=== PATIENT | male | born 1960 | race Caucasian/White ===

== ENCOUNTER 2018-09-19 07:13 | Inpatient (IN) | payer MEDICAID ==
[~2018-09-19] VITALS: Ht 170.2 cm; Wt 77.1 kg
[2018-09-19] MEDS ORDERED: NORCO 7.5/325 T1 TA1 PO (08:13)
[2018-09-19] MEDS ORDERED: IBUPROFEN800 MG PO (08:13)
[2018-09-19 10:17] VITALS: BP 108/88; BMI 26.7
[2018-09-19 11:33] LABS: BASOPHILS 0.9 % (0-2); EOSINOPHILS 1.7 % (0-7); HEMOGLOBIN 13.3 g/dL (13.5-17.5); LYMPHOCYTES 21.4 % (15-50); MCH 31.7 pg (26.0-34.0); MCHC 34.1 g/dL (31.0-37.0); MCV 93.1 fL (80.0-100.0); MEAN PLATELET VOLUME 9.4 fL (7.4-10.4); MONOCYTES 11.6 % (2-11); NEUTROPHILS 64.4 % (40-80); PLATELET COUNT 154 10x3/uL (130-400); RBC 4.19 10x6/uL (4.20-6.10); RDW 13.4 % (11.5-14.5); WBC 5.3 10x3/uL (4.8-10.8)
[2018-09-19 12:09] LABS: ALBUMIN 3.9 g/dL (3.4-5.0); ANION GAP 13.2 mmol/L (8-16); BILIRUBIN - TOTAL 0.71 mg/dL (0.2-1.3); CALCIUM 8.9 mg/dL (8.5-10.1); CARBON DIOXIDE 28.7 mmol/L (21.0-32.0); CREATININE - SERUM 1.3 mg/dL (0.6-1.3); POTASSIUM - SERUM 3.9 mmol/L (3.5-5.1); PROTEIN - SERUM 7.8 g/dL (6.4-8.2)
[2018-09-19 14:46] VITALS: Ht 170.2 cm; Wt 77.1 kg
[2018-09-19 15:23] VITALS: BP 102/60
[2018-09-19 18:00] VITALS: BP 103/66
[2018-09-20 00:30] VITALS: BP 103/65
[2018-09-20 04:00] VITALS: BP 106/72
[2018-09-20 06:49] LABS: BASOPHILS 0.9 % (0-2); EOSINOPHILS 3.1 % (0-7); HEMOGLOBIN 14.3 g/dL (13.5-17.5); IMMATURE GRANULOCYTES 0.4 % (0-5); MCH 31.9 pg (26.0-34.0); MCV 93.8 fL (80.0-100.0); MEAN PLATELET VOLUME 10.3 fL (7.4-10.4); MONOCYTES 11.7 % (2-11); NEUTROPHILS 61.9 % (40-80); PLATELET COUNT 152 10x3/uL (130-400); RBC 4.48 10x6/uL (4.20-6.10); RDW 13.5 % (11.5-14.5); WBC 4.5 10x3/uL (4.8-10.8)
[2018-09-20 07:13] LABS: ALBUMIN 3.5 g/dL (3.4-5.0); ALKALINE PHOSPHATASE 70 U/L (46-116); ALT (SGPT) 428 U/L (10-68); BILIRUBIN - TOTAL 0.69 mg/dL (0.2-1.3); CALCIUM 8.5 mg/dL (8.5-10.1); CARBON DIOXIDE 25.3 mmol/L (21.0-32.0); CHLORIDE - SERUM 103 mmol/L (98-107); GLUCOSE 101 mg/dL (74-106); MAGNESIUM - SERUM 1.9 mg/dL (1.8-2.4); POTASSIUM - SERUM 3.7 mmol/L (3.5-5.1); PROTEIN - SERUM 7.6 g/dL (6.4-8.2); SODIUM 139 mmol/L (136-145)
[2018-09-20 07:16] LABS: CALC OSMOLALITY 281 mosm/kg (275-300); CREATININE - SERUM 0.9 mg/dL (0.6-1.3); UREA NITROGEN 23 mg/dL (7-18); eGFR NON AFRICAN AMERICAN > 90 mL/min (90-120)
[2018-09-20 08:47] VITALS: BP 107/67
[2018-09-20 12:07] VITALS: BP 98/61
[2018-09-20 15:14] VITALS: BP 109/72
[2018-09-20 20:23] VITALS: BP 103/62
[2018-09-21 00:33] VITALS: BP 101/64
[2018-09-21 04:45] VITALS: BP 106/74
[2018-09-21 07:01] LABS: ALKALINE PHOSPHATASE 62 U/L (46-116); ALT (SGPT) 375 U/L (10-68); BILIRUBIN - TOTAL 0.57 mg/dL (0.2-1.3); CALC OSMOLALITY 279 mosm/kg (275-300); CALCIUM 8.2 mg/dL (8.5-10.1); CARBON DIOXIDE 26.7 mmol/L (21.0-32.0); CHLORIDE - SERUM 105 mmol/L (98-107); GLUCOSE 105 mg/dL (74-106); MAGNESIUM - SERUM 2.1 mg/dL (1.8-2.4); POTASSIUM - SERUM 4.2 mmol/L (3.5-5.1); PROTEIN - SERUM 6.9 g/dL (6.4-8.2); SODIUM 140 mmol/L (136-145); UREA NITROGEN 15 mg/dL (7-18); eGFR NON AFRICAN AMERICAN 81 mL/min (90-120)
[2018-09-21 07:02] LABS: BASOPHILS 0.4 % (0-2); HEMATOCRIT 39.4 % (42.0-54.0); HEMOGLOBIN 13.2 g/dL (13.5-17.5); IMMATURE GRANULOCYTES 0.2 % (0-5); LYMPHOCYTES 21.6 % (15-50); MCH 31.7 pg (26.0-34.0); MCHC 33.5 g/dL (31.0-37.0); MCV 94.5 fL (80.0-100.0); MEAN PLATELET VOLUME 9.9 fL (7.4-10.4); MONOCYTES 12.3 % (2-11); NEUTROPHILS 63.5 % (40-80); PLATELET COUNT 158 10x3/uL (130-400); RBC 4.17 10x6/uL (4.20-6.10); RDW 13.7 % (11.5-14.5); WBC 5.5 10x3/uL (4.8-10.8)
[2018-09-21 08:35] VITALS: BP 110/73
[2018-09-21 20:00] VITALS: BP 104/64
[2018-09-22 00:02] VITALS: BP 106/71
[2018-09-22 04:00] VITALS: BP 108/67
[2018-09-22 07:03] LABS: BASOPHILS 0.7 % (0-2); EOSINOPHILS 2.9 % (0-7); HEMOGLOBIN 13.3 g/dL (13.5-17.5); IMMATURE GRANULOCYTES 0.4 % (0-5); LYMPHOCYTES 26.5 % (15-50); MCH 31.7 pg (26.0-34.0); MCHC 33.3 g/dL (31.0-37.0); MCV 95.5 fL (80.0-100.0); MEAN PLATELET VOLUME 9.9 fL (7.4-10.4); MONOCYTES 13.2 % (2-11); NEUTROPHILS 56.3 % (40-80); PLATELET COUNT 155 10x3/uL (130-400); RBC 4.19 10x6/uL (4.20-6.10); RDW 13.5 % (11.5-14.5); WBC 5.5 10x3/uL (4.8-10.8)
[2018-09-22 07:25] LABS: CALC OSMOLALITY 279 mosm/kg (275-300); CALCIUM 8.3 mg/dL (8.5-10.1); CHLORIDE - SERUM 105 mmol/L (98-107); GLUCOSE 92 mg/dL (74-106); MAGNESIUM - SERUM 2.1 mg/dL (1.8-2.4); POTASSIUM - SERUM 4.6 mmol/L (3.5-5.1); SODIUM 141 mmol/L (136-145); UREA NITROGEN 11 mg/dL (7-18); eGFR NON AFRICAN AMERICAN 81 mL/min (90-120)
--- NOTE | 2018-09-22 17:19 | MORECARE ---
CASE MANAGEMENT DISCHARGE SUMMARY PATIENT: AMERICO SNIDER UNIT: [id number] ADM DATE: 09/22/18 AGE: 58 : 60 SEX: M ROOM/BED: D.1206 AUTHOR: XIN ALEXIS PHYSICIAN: REFERRING PHYSICIAN: CANDE MORROW MD DATE OF SERVICE: 09/22/18 Discharge Plan Patient Name: AMERICO SNIDER [facility] [facility] 1960 Planned Disposition: Nursing Facility [facility] [place] Anticipated Discharge Date: Discharge Date: Expected LOS: Initial Reviewer: [id number] Initial Review Date: 09/22/2018 Generated: 09/22/18 6:19 pm DCP- Discharge Planning Updated by [email or web address]: Katie Castillo on 09/20/18 10:[address] NO PLASTIC SURGEON AVAILABLE ON STAFF. WOUND CARE CONSULT HAS BEEN ORDERED. NURSE ON UNIT AT THIS TIME TO EVAL KAY AND COMPLETE CONSULT. External Providers External Provider: [facility] Next Contact Date: 09/23/2018 Service Request Date: Service Type: Resolution: Reviewer: Comments: External Provider: [facility] Next Contact Date: 09/23/2018 Service Request Date: Service Type: Resolution: Reviewer: Comments: External Provider: [facility] Next Contact Date: 09/23/2018 Service Request Date: Service Type: Resolution: Reviewer: Comments: External Provider: [facility] Next Contact Date: 09/23/2018 Service Request Date: Service Type: Resolution: Reviewer: Comments: External Provider[facility] [place] Next Contact Date: 09/23/2018 Service Request Date: Service Type: Resolution: Reviewer: Comments: Patient Name: AMERICO SNIDER Page 01551 at 8460 All edits/amendments must be made on the electronic document DICTATION DATE: 09/22/181717 DATA TECHNICAL LEAD: IRA 09/22/181717 RPT#: [id number] DC DATE: STATUS: ADM IN [facility] [address] [place] [address] END OF REPORT
--- NOTE | 2018-09-22 17:27 | MORECARE ---
CASE MANAGEMENT DISCHARGE SUMMARY PATIENT: AMERICO SNIDER UNIT: [id number] ADM DATE: 09/22/18 AGE: 58 : 60 SEX: M ROOM/BED: D.1206 AUTHOR: XIN ALEXIS PHYSICIAN: REFERRING PHYSICIAN: CANDE MORROW MD DATE OF SERVICE: 09/22/18 Discharge Plan Patient Name: AMERICO SNIDER [facility] [facility] 1960 Planned Disposition: Nursing Facility [facility] Anticipated Discharge Date: Discharge Date: Expected LOS: Initial Reviewer: [id number] Initial Review Date: 09/22/2018 Generated: 09/22/18 6:27 pm DCP- Discharge Planning Updated by [email or web address]: Katie Castillo on 09/20/18 10:[address] NO PLASTIC SURGEON AVAILABLE ON STAFF. WOUND CARE CONSULT HAS BEEN ORDERED. NURSE ON UNIT AT THIS TIME TO EVAL KAY AND COMPLETE CONSULT. External Providers [facility] Next Contact Date: 09/23/2018 Service Request Date: Service Type: Resolution: Reviewer: Comments: External Provider: [facility] Next Contact Date: 09/23/2018 Service Request Date: Service Type: Resolution: Reviewer: Comments: [facility] Next Contact Date: 09/23/2018 Service Request Date: Service Type: Resolution: Reviewer: Comments: Last DP export: 09/22/18 4:19 Patient Name: AMERICO SNIDER Page 82103 at 1727 All edits/amendments must be made on the electronic document DICTATION DATE: 09/22/181725 PHARMACY TECH: IRA 09/22/181725 RPT#: [id number] DC DATE: STATUS: ADM IN [facility] [address] [place] [address] END OF REPORT
--- NOTE | 2018-09-22 17:51 | MORECARE ---
CASE MANAGEMENT DISCHARGE SUMMARY PATIENT: AMERICO SNIDER UNIT: [id number] ADM DATE: 09/22/18 AGE: 58 : 60 SEX: M ROOM/BED: D.1206 AUTHOR: REUBEN,DOC PHYSICIAN: REFERRING PHYSICIAN: CANDE MORROW MD DATE OF SERVICE: 09/22/18 Discharge Plan Patient Name: AMERICO SNIDER Facility: [facility]:[place] : 1960 Planned Disposition: Nursing Facility [facility] Cert Anticipated Discharge Date: Discharge Date: Expected LOS: Initial Reviewer: [email or web address] Initial Review Date: 09/22/2018 Generated: 09/22/18 6:51 pm Comments DCP- Discharge Planning Updated by [id number]: Dandy Hancock on 09/22/18 4:[address] Patient Name: AMERICO SNIDER Admission Status: ER Accout number: [id number] Admission Date: 09-22-2018 : 1960 Admission Diagnosis: Attending: CANDE MORROW Current LOS: 1 Anticipated DC Date: Planned Disposition: Nursing Facility [facility] Cert Primary Insurance: MEDICAID [place] PLANNED EXTERNAL PROVIDER: ANY ACCEPTING FACILITY, SHELTER CARE MEDICAID BED Discharge Planning Comments: CM RECEIVED ORDER FOR PLACEMENT. CM MET WITH PT IN ROOM TO DISCUSS DISCHARGE PLANNING AND NEEDS. PT REPORTS HE IS HOMELESS AND HAS BEEN FOR "YEARS". PT HAS BEEN LIVING IN [place] [facility] AND [facility] ON [facility]. THE HOME HAS NO UTILITIES. PT REPORTS HE HAD A BUCKET WITH BURNING WOOD FOR HEAT AND HAD PUT CHARCOAL FLUID ON IT AND PICKED THE BUCKET UP THAT HAD A HOLE IN IT AND THE FLUID LEAKED ONTO HIS PANT LEG AND BURNED PT'S LEG. PT REPORTS HAVING NO FAMILY OR FRIENDS TO ASSIST AND HAS NO EMERGENCY CONTACT PERSONS. PT REPORTS HE HAS NO INCOME AT ALL AND HAS BEEN DENIED DISABILITY ONCE. 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 PT REPORTS HE NEEDS TO GO TO THE [place] TO LIVE. PT HAS NO MONEY TO PAY FOR ASSISTED LIVING. PT HAS NEVER APPLIED FOR GOVERNMENT HOUSING. CM EXPLAINED TO PT THAT HE WOULD HAVE TO HAVE DEMONSTRATED SKILLED NEEDS THAT OTHERS WOULD HAVE TO PROVIDE CARE FOR MEDICAID TO AUTHORIZE TRUCK DRIVER INSTRUCTOR CARE. PT INITIALLY REPORTED BEING UNABLE TO WALK DUE TO BURN ON THE LEG. WHILE CM WAS EXPLAINING [place] OPTIONS AND LOCATIONS, PT EXCUSED HIMSELF, GOT OUT OF BED, URINATED IN TOILET AND AFTER FLUSHING TOILET, RETURNED TO HIS BED WITHOUT WASHING HIS HANDS. CM POINTED OUT THAT PT IS ABLE TO WALK AND APPEARS TO BE ABLE TO TAKE CARE OF HIMSELF. PT INFORMED CM THAT HE WAS NOT ABLE TO WALK "VERY GOOD NOW." PT HAS NO CHOICE IN COR[place], CHOICE COMPLETED. CM EXPLAINED TO PT THAT CM IS NOT HOPEFUL THAT A [place]RE[place] WILL ACCEPT PT AND THAT MEDICAID WILL PAY FOR PT'S SHELTER CARE, BUT CM WILL TRY. CM DISCUSSED THAT PT MAY HAVE TO RETURN HOME TO HIS ABANDONED HOME AND HAVE OUTPATIENT WOUND CARE; PT REPORTS NOT HAVING TRANSPORTATION. CM PROVIDED PT WITH MEDICAID TRANSPORTATION NUMBER, DISCUSSED CALLING TO CERTIFY HIMSELF AND NEED FOR 24 HOURS NOTICE OF APPOINTMENTS FOR TRANSPORTATION. CM DISCUSSED ASSISTANCE AVAILABLE AT [employer], PT REPORTS USING [employer] AND MOST RECENTLY GETTING FOOD FROM THEM. PT REPORTS HE MAY HAVE A LADY HE HAS DONE WORK FOR THAT MAY ALLOW HIM TO STAY A SHORT TIME IN HER HOME TO ALLOW HIM TIME TO RECUPERATE AND RECEIVE HOME HEALTH. PT HAS NOT PRIMARY CARE DOCTOR AND IF HOME HEALTH IS NEEDED, A DOCTOR WOULD HAVE TO BE WILLING TO FOLLOW FOR HOME HEALTH ORDERS. CM PROVIDED PT WITH APPLICATION FOR [employer] [facility] WITH INK PEN. DR. NASH UPDATED. CM FAXED REFERRALS FOR TRUCK DRIVER INSTRUCTOR CARE TO [facility], [facility], [facility], [place], [facility], [facility], [facility] AND [facility]. CM WAITING ADMISSION DETERMINATION FROM ALL LISTED NURSING HOMES. Tar Heater: Dandy Hancock DCP- Discharge Planning Updated by [id number]: Katie Castillo on 09/20/18 10:[address] NO PLASTIC SURGEON AVAILABLE ON STAFF. WOUND CARE CONSULT HAS BEEN ORDERED. NURSE ON UNIT AT THIS TIME TO EVAL KAY AND COMPLETE CONSULT. Last DP export: 09/22/18 4:27 Patient Name: AMERICO SNIDER Page 60784 at 175 All edits/amendments must be made on the electronic document DICTATION DATE: 09/22/181750 GLAZE MAKER: IRA 09/22/181750 RPT#: [id number] DC DATE: STATUS: ADM IN [facility] [address] [place] [address] END OF REPORT
--- NOTE | 2018-09-22 17:59 | MORECARE ---
CASE MANAGEMENT DISCHARGE SUMMARY PATIENT: AMERICO SNIDER UNIT: [id number] ADM DATE: 09/22/18 AGE: 58 : 60 SEX: M ROOM/BED: D.1206 AUTHOR: REUBEN,DOC PHYSICIAN: REFERRING PHYSICIAN: CANDE MORROW MD DATE OF SERVICE: 09/22/18 Discharge Plan Patient Name: AMERICO SNIDER Facility: [facility]:[place] : 1960 Planned Disposition: Nursing Facility [facility] Cert Anticipated Discharge Date: Discharge Date: Expected LOS: Initial Reviewer: [id number] Initial Review Date: 09/22/2018 Generated: 09/22/18 6:58 pm Comments DCP- Discharge Planning Updated by [email or web address]: Dandy Hancock on 09/22/18 4:[address] Patient Name: AMERICO SNIDER Admission Status: ER Accout number: [id number] Admission Date: 09-22-2018 : 1960 Admission Diagnosis: Attending: CANDE MORROW Current LOS: 1 Anticipated DC Date: Planned Disposition: Nursing Facility [facility] Cert Primary Insurance: MEDICAID [place] PLANNED EXTERNAL PROVIDER: ANY ACCEPTING FACILITY, CARE HOME CARE MEDICAID BED Discharge Planning Comments: CM RECEIVED ORDER FOR PLACEMENT. CM MET WITH PT IN ROOM TO DISCUSS DISCHARGE PLANNING AND NEEDS. PT REPORTS HE IS HOMELESS AND HAS BEEN FOR "YEARS". PT HAS BEEN LIVING IN [place] [facility] AND MORE ON [facility]. THE HOME HAS NO UTILITIES. PT REPORTS HE HAD A BUCKET WITH BURNING WOOD FOR HEAT AND HAD PUT CHARCOAL FLUID ON IT AND PICKED THE BUCKET UP THAT HAD A HOLE IN IT AND THE FLUID LEAKED ONTO HIS PANT LEG AND BURNED PT'S LEG. PT REPORTS HAVING NO FAMILY OR FRIENDS TO ASSIST AND HAS NO EMERGENCY CONTACT PERSONS. PT REPORTS HE HAS NO INCOME AT ALL AND HAS BEEN DENIED DISABILITY ONCE. 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 PT REPORTS HE NEEDS TO GO TO THE LONGTER[place] TO LIVE. PT HAS NO MONEY TO PAY FOR ASSISTED LIVING. PT HAS NEVER APPLIED FOR GOVERNMENT HOUSING. CM EXPLAINED TO PT THAT HE WOULD HAVE TO HAVE DEMONSTRATED SKILLED NEEDS THAT OTHERS WOULD HAVE TO PROVIDE CARE FOR MEDICAID TO AUTHORIZE VETERANS EMPLOYMENT REPRESENTATIVE CARE. PT INITIALLY REPORTED BEING UNABLE TO WALK DUE TO BURN ON THE LEG. WHILE CM WAS EXPLAINING LONGTERM OPTIONS AND LOCATIONS, PT EXCUSED HIMSELF, GOT OUT OF BED, URINATED IN TOILET AND AFTER FLUSHING TOILET, RETURNED TO HIS BED WITHOUT WASHING HIS HANDS. CM POINTED OUT THAT PT IS ABLE TO WALK AND APPEARS TO BE ABLE TO TAKE CARE OF HIMSELF. PT INFORMED CM THAT HE WAS NOT ABLE TO WALK "VERY GOOD NOW." PT HAS NO CHOICE IN LONGTERM, CHOICE COMPLETED. CM EXPLAINED TO PT THAT CM IS NOT HOPEFUL THAT A LONGTERM WILL ACCEPT PT AND THAT MEDICAID WILL PAY FOR PT'S CARE HOME CARE, BUT CM WILL TRY. CM DISCUSSED THAT PT MAY HAVE TO RETURN HOME TO HIS ABANDONED HOME AND HAVE OUTPATIENT WOUND CARE; PT REPORTS NOT HAVING TRANSPORTATION. CM PROVIDED PT WITH MEDICAID TRANSPORTATION NUMBER, DISCUSSED CALLING TO CERTIFY HIMSELF AND NEED FOR 24 HOURS NOTICE OF APPOINTMENTS FOR TRANSPORTATION. CM DISCUSSED ASSISTANCE AVAILABLE AT [employer], PT REPORTS USING [employer] AND MOST RECENTLY GETTING FOOD FROM THEM. PT REPORTS HE MAY HAVE A LADY HE HAS DONE WORK FOR THAT MAY ALLOW HIM TO STAY A SHORT TIME IN HER HOME TO ALLOW HIM TIME TO RECUPERATE AND RECEIVE HOME HEALTH. PT HAS NOT PRIMARY CARE DOCTOR AND IF HOME HEALTH IS NEEDED, A DOCTOR WOULD HAVE TO BE WILLING TO FOLLOW FOR HOME HEALTH ORDERS. CM PROVIDED PT WITH APPLICATION FOR [employer] [facility]OUSING WITH INK PEN. DR. NASH UPDATED. CM FAXED REFERRALS FOR VETERANS EMPLOYMENT REPRESENTATIVE CARE TO [facility], [facility], [facility], [facility], [place], [facility], [facility] AND [facility]. CM WAITING ADMISSION DETERMINATION FROM ALL LISTED NURSING HOMES. Pecan Cleaner: Dandy Hancock DCP- Discharge Planning Updated by [id number]: Katie Castillo on 09/20/18 10:[address] NO PLASTIC SURGEON AVAILABLE ON STAFF. WOUND CARE CONSULT HAS BEEN ORDERED. NURSE ON UNIT AT THIS TIME TO EVAL KAY AND COMPLETE CONSULT. Coverage Notice Reviewer: [id number] - Dandy Hancock Notice Issued Date-Time: 09/22/2018 15:50 Notice Type: Patient Choice Letter Notice Delivered To: Patient Relationship to Patient: Aircraft Quality Control Inspector Name: Delivery Method: HAND - Hand Delivered Corrine Days: Prior Verbal Notification: Recipient Understood Notice: Yes Recipient Signature: Yes Med Rec Note Co-signed by Attending: Coverage Notice Comment: NO LONGTERM PREFERENCE IN THE STATE. Last DP export: 09/22/18 4:51 Patient Name: AMERICO SNIDER Page 61246 at 1759 All edits/amendments must be made on the electronic document DICTATION DATE: 09/22/181757 HOGSHEAD STRIPPER: IRA 09/22/181757 RPT#: [id number] DC DATE: STATUS: ADM IN [facility] [address] [place] [address] END OF REPORT
[2018-09-22 20:03] VITALS: BP 110/64
[2018-09-23 04:58] VITALS: BP 103/65
[2018-09-23 07:14] LABS: BASOPHILS 0.6 % (0-2); EOSINOPHILS 3.8 % (0-7); HEMATOCRIT 41.9 % (42.0-54.0); HEMOGLOBIN 14.2 g/dL (13.5-17.5); IMMATURE GRANULOCYTES 0.2 % (0-5); LYMPHOCYTES 25.4 % (15-50); MCHC 33.9 g/dL (31.0-37.0); MCV 94.4 fL (80.0-100.0); MEAN PLATELET VOLUME 10.6 fL (7.4-10.4); PLATELET COUNT 141 10x3/uL (130-400); RBC 4.44 10x6/uL (4.20-6.10); RDW 13.3 % (11.5-14.5); WBC 4.7 10x3/uL (4.8-10.8)
[2018-09-23 07:18] LABS: CALC OSMOLALITY 277 mosm/kg (275-300); CALCIUM 8.3 mg/dL (8.5-10.1); CARBON DIOXIDE 25.8 mmol/L (21.0-32.0); CHLORIDE - SERUM 104 mmol/L (98-107); CREATININE - SERUM 0.9 mg/dL (0.6-1.3); GLUCOSE 86 mg/dL (74-106); MAGNESIUM - SERUM 1.9 mg/dL (1.8-2.4); POTASSIUM - SERUM 4.1 mmol/L (3.5-5.1); SODIUM 139 mmol/L (136-145); UREA NITROGEN 14 mg/dL (7-18); eGFR NON AFRICAN AMERICAN > 90 mL/min (90-120)
[2018-09-23 08:11] LABS: HEPATITIS C ANTIBODY >11.0 S/CO RAT (0.0-0.9)
--- NOTE | 2018-09-23 16:57 | MORECARE ---
CASE MANAGEMENT DISCHARGE SUMMARY PATIENT: AMERICO SNIDER UNIT: [id number] ADM DATE: 09/22/18 AGE: 58 : 60 SEX: M ROOM/BED: D.1206 AUTHOR: REUBEN,DOC PHYSICIAN: REFERRING PHYSICIAN: CANDE MORROW MD DATE OF SERVICE: 09/23/18 Discharge Plan Patient Name: AMERICO SNIDER Facility[facility]:[place] : 1960 Planned Disposition: Nursing Facility [facility] Cert Anticipated Discharge Date: Discharge Date: Expected LOS: Initial Reviewer: [id number] Initial Review Date: 09/22/2018 Generated: 09/23/18 5:57 pm Comments DCP- Discharge Planning Updated by [id number]: Dandy Hancock on 09/23/18 3:[address] Patient Name: AMERICO SNIDER Encounter No: [id number] : 1960 Primary Insurance: MEDICAID [place] Anticipated DC Date: Planned Disposition: Nursing Facility [facility] Cert External Planned Provider: ANY ACCEPTING [facility] DCP follow-up note: CM RECEIVED CALLS FROM LUPILLO AT [facility] AND [facility], BOTH FACILITIES TURNED DOWN PT FOR PLACEMENT REPORTING PT IS TOO HIGH FUNCTIONING AND MEDICAID WILL NOT APPROVE [facility] PLACEMENT. CM SPOKE TO ROBIN OF [facility] WHO IS STILL LOOKING AT PT'S REFERRAL. DR. NASH UPDATED. CM LINE CONSTRUCTION ENGINEER AGATHA UPDATED. CM WAITING ADMISSION DETERMINATIONS FROM [facility], [place], [facility], [facility] AND [facility]. Telegraphic Typewriter Repairer: Dandy Hancock DCP- Discharge Planning Updated by [id number]: Dandy Hancock on 09/22/18 4:[address] Patient Name: AMERICO SNIDER Admission Status: ER Accout number: [id number] Admission Date: 09-22-2018 : 1960 Admission Diagnosis: Attending: CANDE MORROW Current LOS: 1 Anticipated DC Date: Planned Disposition: Nursing Facility [facility] Cert Primary Insurance: MEDICAID [place] PLANNED EXTERNAL PROVIDER: ANY ACCEPTING FACILITY, [facility] MEDICAID BED Discharge Planning Comments: CM RECEIVED ORDER FOR PLACEMENT. CM MET WITH PT IN ROOM TO DISCUSS DISCHARGE PLANNING AND NEEDS. PT REPORTS HE IS HOMELESS AND HAS BEEN FOR "YEARS". PT HAS BEEN LIVING IN [place] [employer] AND MORE ON [address]. THE HOME HAS NO UTILITIES. PT REPORTS HE HAD A BUCKET WITH BURNING WOOD FOR HEAT AND HAD PUT CHARCOAL FLUID ON IT AND PICKED THE BUCKET UP THAT HAD A HOLE IN IT AND THE FLUID LEAKED ONTO HIS PANT LEG AND BURNED PT'S LEG. PT REPORTS HAVING NO FAMILY OR FRIENDS TO ASSIST AND HAS NO EMERGENCY CONTACT PERSONS. PT REPORTS HE HAS NO INCOME AT ALL AND HAS BEEN DENIED DISABILITY ONCE. 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 PT REPORTS HE NEEDS TO GO TO THE SNF TO LIVE. PT HAS NO MONEY TO PAY FOR ASSISTED LIVING. PT HAS NEVER APPLIED FOR GOVERNMENT HOUSING. CM EXPLAINED TO PT THAT HE WOULD HAVE TO HAVE DEMONSTRATED SKILLED NEEDS THAT OTHERS WOULD HAVE TO PROVIDE CARE FOR MEDICAID TO AUTHORIZE LOCKSTITCH SLEEVE MAKER CARE. PT INITIALLY REPORTED BEING UNABLE TO WALK DUE TO BURN ON THE LEG. WHILE CM WAS EXPLAINING SNF OPTIONS AND LOCATIONS, PT EXCUSED HIMSELF, GOT OUT OF BED, URINATED IN TOILET AND AFTER FLUSHING TOILET, RETURNED TO HIS BED WITHOUT WASHING HIS HANDS. CM POINTED OUT THAT PT IS ABLE TO WALK AND APPEARS TO BE ABLE TO TAKE CARE OF HIMSELF. PT INFORMED CM THAT HE WAS NOT ABLE TO WALK "VERY GOOD NOW." PT HAS NO CHOICE IN SNF, CHOICE COMPLETED. CM EXPLAINED TO PT THAT CM IS NOT HOPEFUL THAT A SNF WILL ACCEPT PT AND THAT MEDICAID WILL PAY FOR PT'S LOCKSTITCH SLEEVE MAKER CARE, BUT CM WILL TRY. CM DISCUSSED THAT PT MAY HAVE TO RETURN HOME TO HIS ABANDONED HOME AND HAVE OUTPATIENT WOUND CARE; PT REPORTS NOT HAVING TRANSPORTATION. CM PROVIDED PT WITH MEDICAID TRANSPORTATION NUMBER, DISCUSSED CALLING TO CERTIFY HIMSELF AND NEED FOR 24 HOURS NOTICE OF APPOINTMENTS FOR TRANSPORTATION. CM DISCUSSED ASSISTANCE AVAILABLE AT [employer], PT REPORTS USING [employer] AND MOST RECENTLY GETTING FOOD FROM THEM. PT REPORTS HE MAY HAVE A LADY HE HAS DONE WORK FOR THAT MAY ALLOW HIM TO STAY A SHORT TIME IN HER HOME TO ALLOW HIM TIME TO RECUPERATE AND RECEIVE HOME HEALTH. PT HAS NOT PRIMARY CARE DOCTOR AND IF HOME HEALTH IS NEEDED, A DOCTOR WOULD HAVE TO BE WILLING TO FOLLOW FOR HOME HEALTH ORDERS. CM PROVIDED PT WITH APPLICATION FOR GOVERNMENT HOUSING WITH INK PEN. DR. NASH UPDATED. CM FAXED REFERRALS FOR [facility] TO [facility], [facility], [facility], [place], [place], [facility], [facility] AND [facility]. CM WAITING ADMISSION DETERMINATION FROM ALL LISTED NURSING HOMES. Telegraphic Typewriter Repairer: Dandy Hancock DCP- Discharge Planning Updated by [id number]: Katiepito Castillo on 09/20/18 10:[address] NO PLASTIC SURGEON AVAILABLE ON STAFF. WOUND CARE CONSULT HAS BEEN ORDERED. NURSE ON UNIT AT THIS TIME TO EVAL KAY AND COMPLETE CONSULT. Coverage Notice Reviewer: [id number] - Dandy Hancock Notice Issued Date-Time: 09/22/2018 15:50 Notice Type: Patient Choice Letter Notice Delivered To: Patient Relationship to Patient: Remediation Consultant Name: Delivery Method: HAND - Hand Delivered Corrine Days: Prior Verbal Notification: Recipient Understood Notice: Yes Recipient Signature: Yes Med Rec Note Co-signed by Attending: Coverage Notice Comment: NO SNF PREFERENCE IN THE STATE. Last DP export: 09/22/18 4:59 Patient Name: AMERICO SNIDER Page 31918 at 1657 All edits/amendments must be made on the electronic document DICTATION DATE: 09/23/181655 HUMAN RESOURCES ASSISTANT: IRA 09/23/181655 RPT#: [id number] [place] DATE: STATUS: ADM IN [facility] [address] [place] [address] END OF REPORT
[2018-09-23 20:00] VITALS: BP 107/65
[2018-09-24] VITALS: BP 103/65
[2018-09-24 04:00] VITALS: BP 104/66
[2018-09-24 09:20] VITALS: BP 96/55
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
[2018-09-24 12:45] LABS: BASOPHILS 0.7 % (0-2); EOSINOPHILS 3.6 % (0-7); HEMATOCRIT 43.5 % (42.0-54.0); HEMOGLOBIN 14.9 g/dL (13.5-17.5); IMMATURE GRANULOCYTES 0.3 % (0-5); LYMPHOCYTES 24.4 % (15-50); MCH 32.5 pg (26.0-34.0); MCHC 34.3 g/dL (31.0-37.0); MCV 94.8 fL (80.0-100.0); MEAN PLATELET VOLUME 9.7 fL (7.4-10.4); MONOCYTES 13.4 % (2-11); NEUTROPHILS 57.6 % (40-80); PLATELET COUNT 170 10x3/uL (130-400); RBC 4.59 10x6/uL (4.20-6.10); RDW 13.6 % (11.5-14.5)
[2018-09-24 13:03] LABS: ALBUMIN 3.3 g/dL (3.4-5.0); ALKALINE PHOSPHATASE 79 U/L (46-116); ALT (SGPT) 623 U/L (10-68); CALC OSMOLALITY 284 mosm/kg (275-300); CALCIUM 8.7 mg/dL (8.5-10.1); CARBON DIOXIDE 27.5 mmol/L (21.0-32.0); CHLORIDE - SERUM 105 mmol/L (98-107); CREATININE - SERUM 0.9 mg/dL (0.6-1.3); GLUCOSE 87 mg/dL (74-106); MAGNESIUM - SERUM 1.9 mg/dL (1.8-2.4); POTASSIUM - SERUM 4.4 mmol/L (3.5-5.1); PROTEIN - SERUM 7.5 g/dL (6.4-8.2); SODIUM 143 mmol/L (136-145); UREA NITROGEN 14 mg/dL (7-18); eGFR NON AFRICAN AMERICAN > 90 mL/min (90-120)
[2018-09-24 14:41] VITALS: BP 117/60
[2018-09-24 16:12] VITALS: BP 102/54
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
[2018-09-24 20:00] VITALS: BP 105/62
[2018-09-25] VITALS: BP 105/58
[2018-09-25 04:00] VITALS: BP 102/55
[2018-09-25 06:51] LABS: BASOPHILS 0.7 % (0-2); EOSINOPHILS 4.4 % (0-7); HEMATOCRIT 40.7 % (42.0-54.0); HEMOGLOBIN 13.6 g/dL (13.5-17.5); IMMATURE GRANULOCYTES 0.5 % (0-5); LYMPHOCYTES 22.9 % (15-50); MCH 31.9 pg (26.0-34.0); MCHC 33.4 g/dL (31.0-37.0); MCV 95.5 fL (80.0-100.0); MEAN PLATELET VOLUME 9.8 fL (7.4-10.4); NEUTROPHILS 57.5 % (40-80); PLATELET COUNT 165 10x3/uL (130-400); RBC 4.26 10x6/uL (4.20-6.10); RDW 13.7 % (11.5-14.5)
[2018-09-25 07:06] LABS: WBC 4.3 10x3/uL (4.8-10.8)
[2018-09-25 07:36] LABS: ALBUMIN 2.8 g/dL (3.4-5.0); ALKALINE PHOSPHATASE 73 U/L (46-116); ALT (SGPT) 584 U/L (10-68); BILIRUBIN - TOTAL 0.31 mg/dL (0.2-1.3); CALC OSMOLALITY 286 mosm/kg (275-300); CALCIUM 8.3 mg/dL (8.5-10.1); CARBON DIOXIDE 26.4 mmol/L (21.0-32.0); CHLORIDE - SERUM 106 mmol/L (98-107); CREATININE - SERUM 0.9 mg/dL (0.6-1.3); GLUCOSE 99 mg/dL (74-106); POTASSIUM - SERUM 3.9 mmol/L (3.5-5.1); PROTEIN - SERUM 6.9 g/dL (6.4-8.2); SODIUM 143 mmol/L (136-145); eGFR NON AFRICAN AMERICAN > 90 mL/min (90-120)
[2018-09-25 07:43] LABS: UREA NITROGEN 18 mg/dL (7-18)
[2018-09-25 11:33] VITALS: BP 96/66
[2018-09-25] MEDS ORDERED: KEFLEX500 MG PO (12:47)
[2018-09-25] MEDS ORDERED: NORCO-7.5 PO (12:48)
[2018-09-25] MEDS ORDERED: SILVADENE TOPICAL (12:49)
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
== END 2018-09-25 15:35 | disposition home or self-care (01) | DRG 935 ==
LOC: D.ER 07:13 → OBSVTIME 08:29 → D.M3 08:29
PROVIDERS: Family Medicine; ADMIT Internal Medicine Nephrology
DX: T24.202A Burn of second degree of unspecified site of left lower limb, except ankle and foot, initial encounter (principal); F17.213 Nicotine dependence, cigarettes, with withdrawal; T31.0 Burns involving less than 10% of body surface; X08.8XXA Exposure to other specified smoke, fire and flames, initial encounter; B19.20 Unspecified viral hepatitis C without hepatic coma

== ENCOUNTER 2020-02-13 17:51 | Emergency (ER) | payer MEDICAID ==
[~2020-02-13] VITALS: Ht 170.2 cm; Wt 68.2 kg
[~2020-02-13 17:51] MED LIST: IBUPROFEN800 MG PO; KEFLEX500 MG PO; NORCO 7.5/325 T1 TA1 PO; NORCO-7.5 PO; SILVADENE TOPICAL
[2020-02-13 18:02] VITALS: BP 93/56; Ht 170.2 cm; Wt 68.2 kg
== END 2020-02-13 19:00 | disposition left against medical advice (07) ==
LOC: D.ER 17:51
DX: M54.9 Dorsalgia, unspecified (principal)